=== PATIENT | female | born 1985 | race Caucasian/White ===

== ENCOUNTER 2019-09-30 10:56 | Emergency (ER) | payer OTHER, SELFPAY ==
[2019-09-30 10:56] VITALS: BP 135/85; PULSE 84; RESP 19; TEMP 36.9; O2SAT 97; BMI 37.9
--- NOTE | 2019-09-30 11:47 | HMH.EDUTC ---
[facility] [place] Impression: Bronchitis Sinusitis Qualifiers: Sinusitis location: unspecified location Chronicity: unspecified Qualified Code(s): J32.9 - Chronic sinusitis, unspecified Disposition: Home, Self-Care Condition on Discharge: Good Instructions: Sinusitis, Sinus Headache, DI for Sinusitis, Acute Bronchitis, Acute Bronchitis (Alternative Therapy), DI for Acute Bronchitis Additional Instructions: *Monitor Temp, Over the counter Motrin or Tylenol as directed/as needed Tylenol every 4 hours and Motrin every 6 hours (as long as your family doctor has told you that you can take it) for fever or pain. and straight to ER if unable to lower temp less than 101.0 after medication given *Warm salt water gargles may help to soothe the throat *Throat Lozenges *Warm fluids *Sleep elevated *Humidifier/Vaporizer ? Start antibiotic today. Be sure to complete entire prescription even if feeling better ? Monitor temp. Tylenol every 4 hours as needed and / or ibuprofen every 6 hours as needed ( As long as your primary care physician has told you that it ok to take both. For fever/aches/pains ER if no less than 101 despite Tylenol or Motrin ? Humidifier/vaporizer or hot steamy shower ? Inhaler every 4-6 hours as needed like we discussed. If unsure how to use it, ask pharmacist to demonstrate how. Should help open airways and improve cough, wheezing, and shortness of breath ? Mucinex during the day for your cough and cough suppressant only at night. Be sure to drink lots of water. Insurance may not cover a prescriptions for mucinex. Might be cheaper to get 400mg tablets and take 2 tablet in the morning, mid-day and evening with lots of water. *Start steroid today. Helps with inflammation therefore, cough and wheezing. Follow directions on the package. Reviewed side effects. Patient reports taking them before. Follow up IMMEDIATELY for new or worsening of symptoms OR no noticeable improvement over the next 48-72 hours. 911 immediately for any life threatening symptoms such as chest pain or difficulty breathing Follow up IMMEDIATELY for new or worsening symptoms or no Noticeable improvement over the next 48-72 hours. 911 for difficulty breathing or swallowing Prescriptions: Albuterol Sulfate [Albuterol HFA Inhaler] 1 - 2 puffs IH Q4-6H PRN #1 inh PRN Reason: Shortness Of Breath Or Wheezing Transmission Status: Pending to [facility] methylPREDNISolone [Medrol 4mg tab] 4 mg PO DIRECTED #21 tab Transmission Status: Pending to [facility] Azithromycin [Z-Drake 250mg Tab*] 250 mg PO UD DOSE PK #6 tab Transmission Status: Pending to [facility] Referrals: Hesham Stubbs [Primary Care Provider] - As needed Time of Disposition: 11:53 Medical Decision Making - Luis Inquiry Pt receiving controlled substance: No Luis was queried for this patient: No Vital Signs: 09/30/19 10:56 Temperature 98.4 F Temperature Source Oral Pulse Rate [Right] 84 Respiratory Rate 19 Blood Pressure [Right Arm] 135/85 Blood Pressure Mean [Right Arm] 101 02 Sat by Pulse Oximetry 97 - Reevaluation(s) Time: 11:53 Reevaluation #1: Patient states that she is allergic to Biacin but has been able to take Azithromycin without complications or reactions [facility] [place] General Stated complaint: sinus congestion Time Seen by Provider: 09/30/19 11:47 Mode of Arrival: Ambulatory Limitations: No Limitations Description of Symptoms (Recalled from Triage Doc. by RN): C/O sinus pressure, drainage and cough for several days. HEENT Symptoms (Recalled from RN notes): Yes Resp Symptoms (Recalled from RN notes): Yes Skin Symptoms (Recalled from RN notes): No MS Symptoms (Recalled from RN notes): No Functional Status (Recalled from RN notes): na - History of Present Illness Provider Complaint: Patient states that she is having sinus congestion and drianage and feels like it is moving into her chest and causing bro
[2019-09-30 12:06] VITALS: BP 124/78; PULSE 78; RESP 18; TEMP 36.7; O2SAT 98
== END 2019-09-30 12:06 | disposition home or self-care (01) ==
PROVIDERS: Emergency Provider Nurse Practitioner; PCP Pediatrics
DX: J40 Bronchitis, not specified as acute or chronic (principal); J32.9 Chronic sinusitis, unspecified; Z88.1 Allergy status to other antibiotic agents; Z88.0 Allergy status to penicillin; Z79.899 Other long term (current) drug therapy
CPT/HCPCS: 99201

== ENCOUNTER → 2020-07-23 10:44 | Outpatient (CLI) | payer OTHER, SELFPAY ==
[2020-07-23 11:39] LABS: Strep Scrn Group A (Rapid) Negative (Negative)
== END ==
PROVIDERS: PCP Internal Medicine Adolescent Medicine; Visit Provider Internal Medicine Adolescent Medicine
DX: Z03.818 Encounter for observation for suspected exposure to other biological agents ruled out (principal); J02.9 Acute pharyngitis, unspecified
CPT/HCPCS: 87070; 87077; 87430; U0003

== ENCOUNTER → 2020-10-13 10:39 | Outpatient (CLI) | payer OTHER, SELFPAY ==
--- NOTE | 2020-10-13 10:48 | XR_ITS ---
PROCEDURE: XR FOOT LT MIN 3V CLINICAL INDICATION: LT FOOT PAIN COMPARISON: No exams were available for comparison FINDINGS: No fracture or dislocation. No lytic or blastic change. There is normal mineralization. The joint spaces are well-preserved. No significant degenerative/arthritic changes. No erosive changes evident. Other findings:There is a small calcaneal spur IMPRESSION: No acute findings. Dictated by: Nelson Arevalo MD 10/13/2020 14:34 Nelson Arevalo MD in [place] 10/13/2020 14:34
== END ==
PROVIDERS: PCP Internal Medicine Adolescent Medicine; Visit Provider Internal Medicine Adolescent Medicine
DX: M79.672 Pain in left foot (principal)
CPT/HCPCS: 73630

== ENCOUNTER 2020-10-13 11:04 | Outpatient (RCR) | payer OTHER, SELFPAY | END 2020-10-13 11:49 | disposition home or self-care (01) | LOC: PT 11:04 | PROVIDERS: Visit Provider Internal Medicine Adolescent Medicine | DX: M79.672 Pain in left foot (principal) ==

== ENCOUNTER → 2020-11-10 11:19 | Outpatient (CLI) | payer OTHER, SELFPAY ==
[2020-11-10 11:50] LABS: Hemoglobin A1C 6.1 % (4.0-6.0)
[2020-11-10 12:40] LABS: Chloride 104 mmol/L (98-107); Potassium 4.4 mmoL/L (3.5-5.1); Sodium 138 mmol/L (136-145)
[2020-11-10 12:43] LABS: Anion Gap 9.4 mEq/L (5-15); Blood Urea Nitrogen 10 mg/dl (7-17); Calcium 9.9 mg/dl (8.4-10.2); Carbon Dioxide 29 mmol/L (22.0-30.0); Estimated Glomerular Filt Rate 114 ml/min (>60); GFR (African American) 138 ML/MIN (>60); Glucose 91 mg/dl (74-100)
== END ==
PROVIDERS: Visit Provider Internal Medicine Adolescent Medicine
DX: E11.9 Type 2 diabetes mellitus without complications (principal); Z79.84 Long term (current) use of oral hypoglycemic drugs
CPT/HCPCS: 36415; 80048; 83036

== ENCOUNTER → 2021-02-16 14:30 | Outpatient (CLI) | payer OTHER, SELFPAY ==
[2021-02-17 08:58] LABS: Basophils # 0.1 K/mm3 (0-0.2); Basophils % 0.7 % (0.1-2.0); Eosinophils # 0.2 K/mm3 (0.0-0.4); Hematocrit 42.5 % (37.0-47.0); Hemoglobin 13.7 g/dL (12.2-16.2); Lymphocytes # 1.7 K/mm3 (0.7-4.5); Lymphocytes % 16.7 % (10-50); Mean Corpuscular HGB Conc 32.2 g/dL (31.8-35.4); Mean Corpuscular Hemoglobin 29.9 pg (27.0-31.2); Mean Platelet Volume 9.7 fl (7.4-10.4); Monocytes # 0.4 K/mm3 (0.1-1.0); Monocytes % 3.5 % (1.7-9.3); Neutrophils % 77.1 % (37.0-80.0); Platelet Count 278 K/mm3 (142-424); Red Blood Count 4.57 M/mm3 (4.20-5.40); Red Cell Distribution Width 14.4 % (11.5-17.5); White Blood Count 10.4 K/mm3 (4.8-10.8)
[2021-02-17 09:27] LABS: Alanine Aminotransferase 49 U/L (12-78); Albumin Level 4.4 g/dl (3.5-5.0); Albumin/Globulin Ratio 1.8 (1.1-1.8); Alkaline Phosphatase 113 U/L (38-126); Anion Gap 15.9 mEq/L (5-15); Aspartate Amino Transferase 44 U/L (14-36); Bilirubin,Total 0.4 mg/dl (0.2-1.3); Blood Urea Nitrogen 11 mg/dl (7-17); Calcium 9.9 mg/dl (8.4-10.2); Carbon Dioxide 26 mmol/L (22.0-30.0); Chloride 99 mmol/L (98-107); Estimated Glomerular Filt Rate 114 ml/min (>60); GFR (African American) 138 ML/MIN (>60); Globulin 2.5 g/dL (1.3-3.2); Glucose 155 mg/dl (74-100); Potassium 4.9 mmoL/L (3.5-5.1); Sodium 136 mmol/L (136-145); Total Protein,Serum 6.9 g/dl (6.3-8.2)
[2021-02-17 11:05] LABS: Hemoglobin A1C 6.4 % (4.0-6.0)
== END ==
PROVIDERS: Visit Provider Internal Medicine Adolescent Medicine
DX: E11.9 Type 2 diabetes mellitus without complications (principal); Z79.84 Long term (current) use of oral hypoglycemic drugs
CPT/HCPCS: 80053; 83036; 85025

== ENCOUNTER → 2021-05-15 12:11 | Outpatient (CLI) | payer OTHER, SELFPAY ==
[2021-05-15 13:22] LABS: Blood Urea Nitrogen 7 mg/dl (7-17); Estimated Glomerular Filt Rate 141 ml/min (>60); GFR (African American) 171 ML/MIN (>60)
== END ==
PROVIDERS: Visit Provider Podiatrist
DX: Z01.812 Encounter for preprocedural laboratory examination (principal)
CPT/HCPCS: 36415; 82565; 84520

== ENCOUNTER → 2021-05-18 15:33 | Outpatient (CLI) | payer OTHER, SELFPAY ==
--- NOTE | 2021-05-18 15:34 | MR_ITS ---
PROCEDURE: MR ANKLE LT WO/W CON CLINICAL INDICATION: chronic pain COMPARISON: No exams were available for comparison TECHNIQUE: Routine multiplanar multi echo sequences are performed without gadolinium enhancement. FINDINGS: There is mild diffuse subcutaneous edema about the ankle. No acute fracture or dislocation is evident. Talar dome has an unremarkable appearance. The ankle mortise is preserved. The tibiofibular ligaments, anterior and posterior talofibular ligament and deltoid ligament appear intact. The peroneal longus and brevis tendons appear intact. Small amount fluid is present along the posterior tibialis tendon. No evidence tendon tear. The flexor digitorum longus tendon has an unremarkable appearance. Small amount fluid is also present in the flexor hallucis longus tendon sheath at the level of the ankle joint. The Achilles tendon and the anterior extensor tendons have an unremarkable appearance. Sinus tarsi is unremarkable. IMPRESSION: 1. No ligamentous or tendon injury apparent. 2. Mild diffuse subcutaneous edema about the ankle. 3. Tenosynovitis of the posterior tibialis and flexor hallucis longus tendons Dictated by: Nelson Arevalo MD 05/19/2021 11:15 Nelson Arevalo MD in [place] 05/19/2021 11:15
== END ==
PROVIDERS: PCP Internal Medicine Adolescent Medicine; Visit Provider Podiatrist
DX: M25.572 Pain in left ankle and joints of left foot (principal); M25.372 Other instability, left ankle
CPT/HCPCS: 73723; A9576

== ENCOUNTER → 2021-08-17 18:53 | Outpatient (CLI) | payer OTHER, SELFPAY ==
[2021-08-17 19:09] LABS: Hemoglobin A1C 6.9 % (4.0-6.0)
== END ==
PROVIDERS: Visit Provider Internal Medicine Adolescent Medicine
DX: E11.9 Type 2 diabetes mellitus without complications (principal); Z79.84 Long term (current) use of oral hypoglycemic drugs
CPT/HCPCS: 83036

== ENCOUNTER 2021-08-19 10:47 | Emergency (ER) | payer OTHER, SELFPAY ==
[2021-08-19 11:00] VITALS: BP 152/93; PULSE 100; RESP 18; TEMP 36.8; O2SAT 98; BMI 42.4
--- NOTE | 2021-08-19 11:57 | HMH.EDUTC ---
[facility] [place] Clinical Impression: Sinusitis Qualifiers: Sinusitis location: unspecified location Chronicity: unspecified Qualified Code(s): J32.9 - Chronic sinusitis, unspecified Disposition: Home, Self-Care Condition on Discharge: Good Instructions: Sinusitis, DI for Sinusitis Additional Instructions: *Monitor Temp, Over the counter Motrin or Tylenol as directed/as needed Tylenol every 4 hours and Motrin every 6 hours (as long as your family doctor has told you that you can take it) for fever or pain. and straight to ER if unable to lower temp less than 101.0 after medication given *Warm salt water gargles may help to soothe the throat *Throat Lozenges *Warm fluids like tea with honey may help to soothe the throat *Sleep elevated *Humidifier/Vaporizer Follow up IMMEDIATELY for new or worsening symptoms or no Noticeable improvement over the next 48-72 hours. 911 for difficulty breathing or swallowing You were tested for today for COVID19 your test result should be back in the next 24-48 hours, you may check your results on the [facility] health portal if you have trouble logging on or viewing your results you may call You was given a handout with instructions for Self Quarantine and Self isolation for while you wait on test results and what to do if they are positive If you are positive the Health Dept will be contacting you also Make sure to take your Vitamins Vit. C Vit D and Zinc if you can take them Prescriptions: predniSONE [Deltasone 10mg tablet] 10 mg PO BID 5 Days #10 tab Transmission Status: [facility]ending to [id number] Azithromycin [Z-Drake 250mg Tab] 250 mg PO DIRECTED #6 tab Transmission Status: Pending to [id number] Referrals: Grupo Luna MD [Primary Care Provider] - As needed Forms: Work/School Release Time of Disposition: 12:06 Medical Decision Making - Luis Inquiry Pt receiving controlled substance: No Luis was queried for this patient: No Vital Signs: 08/19/21 11:00 Temperature 98.3 F Temperature Source Oral Pulse Rate [Right Brachial] 100 H Respiratory Rate 18 Blood Pressure [Right Arm] 152/93 H Blood Pressure Mean [Right Arm] 112 Blood Pressure Source [Right Arm] Automatic Cuff Blood Pressure Position [Right Arm] Sitting 02 Sat by Pulse Oximetry 98 Oxygen Delivery Method Room Air Medical Decision Narrative: Patient states that she is allergic to Clarithromycin but has taken azithromycin in the past without complications [facility] [place] - General Stated complaint: sore throat, runny nose, WOOD, congestion Time Seen by Provider: 08/19/21 11:58 Mode of Arrival: Ambulatory Source of Information: Patient Limitations: No Limitations Description of Symptoms (Recalled from Triage Doc. by RN): PATIENT C/O SINUS PRESSURE, SCRATCHY THROAT/EARS, AND RUNNY NOSE X 1 WEEK HEENT Symptoms (Recalled from RN notes): Yes Resp Symptoms (Recalled from RN notes): No Skin Symptoms (Recalled from RN notes): No MS Symptoms (Recalled from RN notes): No Functional Status (Recalled from RN notes): WNL - History of Present Illness Provider Complaint: Patient states that she has been having sinus pain and pressure for over a week that has continued to get worse since Tuesday States that today she feels pressure behind her eyes and in her ears State that she has had a cough and drainage in the back of her throat so she came in to get checked - Related Data Home Medications Medication Instructions Recorded Confirmed Cetirizine HCl [Zyrtec] 10 mg PO DAILY 02/01/18 08/19/21 Fluoxetine HCl 20 mg PO DAILY 10/30/19 08/19/21 metformin 500 mg tablet 500 mg PO BID tab 11/10/20 08/19/21 Previous Rx's Medication Instructions Recorded Azithromycin [Z-Drake 250mg Tab] 250 mg PO DIRECTED #6 tab 08/19/21 predniSONE [Deltasone 10mg tablet] 10 mg PO BID 5 Days #10 tab 08/19/21 Allergies Allergy/AdvReac Type Severity Reaction Status Date / Time clarithromycin [From Biaxin] Allergy Ve
[2021-08-19 12:06] VITALS: BP 152/93; PULSE 100; RESP 18; TEMP 36.8; O2SAT 98
== END 2021-08-19 12:13 | disposition home or self-care (01) ==
PROVIDERS: Emergency Provider Nurse Practitioner; PCP Internal Medicine Adolescent Medicine
DX: J32.9 Chronic sinusitis, unspecified (principal); E11.9 Type 2 diabetes mellitus without complications; F33.1 Major depressive disorder, recurrent, moderate; Z20.822 Contact with and (suspected) exposure to COVID-19
CPT/HCPCS: 99202; C9803; G0463; U0003; U0005

== ENCOUNTER 2021-09-08 12:07 | Emergency (ER) | payer OTHER, SELFPAY ==
[2021-09-08 13:23] VITALS: BP 133/79; PULSE 109; RESP 21; TEMP 37.2; O2SAT 98; BMI 42.0
--- NOTE | 2021-09-08 13:47 | HMH.EDUTC ---
[facility] [place] Clinical Impression: Sinusitis Qualifiers: Sinusitis location: unspecified location Chronicity: unspecified Qualified Code(s): J32.9 - Chronic sinusitis, unspecified Disposition: Home, Self-Care Condition on Discharge: Good Instructions: Sinusitis, DI for Sinusitis Additional Instructions: ? Start antibiotic today. Be sure to complete entire prescription even if feeling better ? Monitor temp. Tylenol every 4 hours as needed and / or ibuprofen every 6 hours as needed ( As long as your primary care physician has told you that it ok to take both. For fever/aches/pains ER if no less than 101 despite Tylenol or Motrin ? Humidifier/vaporizer or hot steamy shower ? Inhaler every 4-6 hours as needed like we discussed. If unsure how to use it, ask pharmacist to demonstrate how. Should help open airways and improve cough, wheezing, and shortness of breath Warm teas may help with throat irritation *Tessalon Perles will not cause drowsiness but use at bedtime to help stop cough so that you may get some rest. *Start steroid today. Helps with inflammation therefore, cough and wheezing. Follow directions on the package. Reviewed side effects. Patient reports taking them before. Follow up IMMEDIATELY for new or worsening of symptoms OR no noticeable improvement over the next 48-72 hours. 911 immediately for any life threatening symptoms such as chest pain or difficulty breathing Prescriptions: Benzonatate [Benzonatate 100mg cap] 100 mg PO Q8HP PRN #30 cap PRN Reason: Cough Transmission Status: Received by [id number] Fluticasone Propionate [Flonase 50mcg nasal spray 16gm] 1 spr NS DAILY #1 ml Transmission Status: Received by [id number] levoFLOXacin [Levaquin 500mg tab] 500 mg PO DAILY 7 Days #7 tab Transmission Status: [id number] Referrals: Grupo Luna MD [Primary Care Provider] - As needed Forms: Work/School Release Time of Disposition: 14:27 Medical Decision Making - Luis Inquiry Pt receiving controlled substance: No Luis was queried for this patient: No Vital Signs: 09/08/21 13:23 Temperature 98.9 F Temperature Source Oral Pulse Rate [Left] 109 H Respiratory Rate 21 Blood Pressure [Right Arm] 133/79 Blood Pressure Mean [Right Arm] 97 02 Sat by Pulse Oximetry 98 Orders (Tests/Meds): ED MEDICATIONS Discontinued Medications Generic Name Dose Route Start Last Admin Trade Name Dm PRN Reason Stop Dose Admin Methylprednisolone Sodium Succinate 125 mg 09/08/21 13:54 09/08/21 14:09 Methylprednisolone Sod Succ 125mg Vial IM 09/08/21 13:55 125 mg ONCE ONE Administration Medical Decision Narrative: Patient state that she has taken Levaqin in the past without complications or reactions [facility] [place] - General Stated complaint: coughm runny nose, WOOD, congestion Time Seen by Provider: 09/08/21 13:47 Mode of Arrival: Ambulatory Source of Information: Patient Limitations: No Limitations HEENT Symptoms (Recalled from RN notes): Yes (nasal drainage/congestion) Resp Symptoms (Recalled from RN notes): Yes (cough) Skin Symptoms (Recalled from RN notes): No MS Symptoms (Recalled from RN notes): No Functional Status (Recalled from RN notes): wnl - History of Present Illness Provider Complaint: Patient states that she was seen about 2-3 wks ago and was treated for Sinus infection States that she took the medication and it got better but then a few days ago she noticed it was comining back and she was having pressure again in her sinuses and it was causing her to cough States that today she was having pressure behind her eyes and still having the cough so she came in to get checked again - Related Data Home Medications Medication Instructions Recorded Confirmed Cetirizine HCl [Zyrtec] 10 mg PO DAILY 02/01/18 08/19/21 Fluoxetine HCl 20 mg PO DAILY 10/30/19 08/19/21 metformin 500 mg tablet 500 mg PO BID tab 11/10/20 08/19/21 Previous Rx's
[2021-09-08 14:30] VITALS: BP 133/79; PULSE 109; RESP 20; TEMP 37.2
[2021-09-08 14:33] LABS: Adenovirus,PCR Not Detected (NotDetected); Bordetella Pertussis Not Detected (NotDetected); Chlamydophila Pneumoniae, PCR Not Detected (NotDetected); Coronavirus 19, PCR Not Detected (NotDetected); Coronavirus 229E Not Detected (NotDetected); Coronavirus NL63 Not Detected (NotDetected); Coronovirus HKU1,PCR Not Detected (NotDetected); Human Metapneumovirus Not Detected (NotDetected); Influenza A, PCR Not Detected (NotDetected); Influenza AH1, 2009 Not Detected (NotDetected); Influenza AH1, PCR Not Detected (NotDetected); Influenza AH3,PCR Not Detected (NotDetected); Influenza B, PCR Not Detected (NotDetected); Mycoplasma Pneumoniae, PCR Not Detected (NotDetected); Parainfluenza 1, PCR Not Detected (NotDetected); Parainfluenza 2, PCR Not Detected (NotDetected); Parainfluenza 3, PCR Not Detected (NotDetected); Parainfluenza 4, PCR Not Detected (NotDetected); Respiratory Syncytial Virus Not Detected (NotDetected); Rhinovirus/Enterovirus Not Detected (NotDetected)
[2021-09-08 19:22] LABS: Coronavirus OC43 Detected (NotDetected)
== END 2021-09-08 14:36 | disposition home or self-care (01) ==
PROVIDERS: Emergency Provider Nurse Practitioner; PCP Internal Medicine Adolescent Medicine
DX: J32.9 Chronic sinusitis, unspecified (principal); B97.29 Other coronavirus as the cause of diseases classified elsewhere; E11.9 Type 2 diabetes mellitus without complications; F33.1 Major depressive disorder, recurrent, moderate; Z88.0 Allergy status to penicillin; Z79.899 Other long term (current) drug therapy
CPT/HCPCS: 87581; 87632; 87798; 96372; 99202; C9803; G0463; U0003; U0005

== ENCOUNTER → 2021-10-23 11:26 | Outpatient (CLI) | payer OTHER, SELFPAY | PROVIDERS: Visit Provider Nurse Practitioner | DX: Z20.822 Contact with and (suspected) exposure to COVID-19 (principal) | CPT/HCPCS: C9803; U0003; U0005 ==

== ENCOUNTER 2022-02-12 10:18 | Emergency (ER) | payer OTHER, SELFPAY ==
[2022-02-12 11:05] VITALS: BP 133/83; PULSE 89; RESP 19; TEMP 37.1; O2SAT 98; BMI 39.5
--- NOTE | 2022-02-12 11:16 | HMH.EDUTC ---
[facility] [place] Clinical Impression: Acute bronchitis Qualifiers: Bronchitis organism: unspecified organism Qualified Code(s): J20.9 - Acute bronchitis, unspecified Sinusitis Qualifiers: Sinusitis location: unspecified location Chronicity: acute Recurrence: non-recurrent Qualified Code(s): J01.90 - Acute sinusitis, unspecified Disposition: Home, Self-Care Condition on Discharge: Good Instructions: DI for Sinusitis, DI for Acute Bronchitis Additional Instructions: Drink plenty of fluids. Take tylenol or ibuprofen for pain or fever. Take the medications as directed. Follow up with your regular doctor. GO TO THE ER FOR ANY WORSENING SYMPTOMS Don't start the oral steroids until tomorrow, since you had the shot here today. The cough medication (promethazine dm) will make you drowsy, so don't drive or operate heavy machinery after taking it. Prescriptions: Albuterol Sulfate [Albuterol Sulfate Hfa] 2 puffs IH Q6HP PRN 30 Days #1 each PRN Reason: Shortness Of Breath Transmission Status: Received by [facility] Promethazine/Dextromethorphan [Promethazine-Dm Syrup] 5 ml PO Q6HP PRN #240 ml PRN Reason: Cough Transmission Status: Received by [facility] methylPREDNISolone [Medrol] 4 mg PO DIRECTED 6 Days #21 packet Transmission Status: Received by [facility] Cefdinir [Omnicef 300mg Capsule] 300 mg PO BID #20 cap Transmission Status: Received by [facility] Referrals: Grupo Luna MD [Primary Care Provider] - Forms: Work/School Release Time of Disposition: 12:02 Medical Decision Making - Medical Records Medical records reviewed: No: I reviewed the patient's medical records. - Luis Inquiry Pt receiving controlled substance: No Vital Signs: 02/12/22 11:05 02/12/22 11:53 Temperature 98.8 F 98.8 F Temperature Source Oral Pulse Rate 89 Pulse Rate [Right Brachial] 89 Respiratory Rate 19 19 Blood Pressure 133/83 Blood Pressure [Right Arm] 133/83 Blood Pressure Mean [Right Arm] 99 Blood Pressure Source [Right Arm] Automatic Cuff Blood Pressure Position [Right Arm] Sitting 02 Sat by Pulse Oximetry 98 Oxygen Delivery Method Room Air - Lab Data Lab results reviewed: Yes: I reviewed the patient's lab results. Orders (Tests/Meds): ED MEDICATIONS Discontinued Medications Generic Name Dose Route Start Last Admin Trade Name Dm PRN Reason Stop Dose Admin Dexamethasone Sodium Phosphate 8 mg 02/12/22 11:42 02/12/22 11:50 Dexamethasone 4mg/Ml 1ml Vial IM 02/12/22 11:43 8 mg ONCE ONE Administration [facility] [place] HPI - General Stated complaint: chest congestion, cough, sore throat, sinus press. Time Seen by Provider: 02/12/22 11:16 - History of Present Illness Provider Complaint: She states that for the past 3 days she has had sinus congestion, chest congestion, poor appetite and she has felt bad. She states that she gets this every spring and its her normal bronchitis. She refuses a covid-19 test. - Related Data Home Medications Medication Instructions Recorded Confirmed Cetirizine HCl [Zyrtec] 10 mg PO DAILY 02/01/18 10/24/21 Fluoxetine HCl 20 mg PO DAILY 10/30/19 10/24/21 metformin 500 mg tablet 500 mg PO BID tab 11/10/20 10/24/21 Previous Rx's Medication Instructions Recorded methylprednisolone 4 mg tablets in See Rx Instructions PO PER PKG DIR 10/24/21 a dose pack #21 tab Albuterol Sulfate [Albuterol 2 puffs IH Q6HP PRN 30 Days #1 each 02/12/22 Sulfate Hfa] Cefdinir [Omnicef 300mg Capsule] 300 mg PO BID #20 cap 02/12/22 Promethazine/Dextromethorphan 5 ml PO Q6HP PRN #240 ml 02/12/22 [Promethazine-Dm Syrup] methylPREDNISolone [Medrol] 4 mg PO DIRECTED 6 Days #21 02/12/22 packet Allergies Allergy/AdvReac Type Severity Reaction Status Date / Time clarithromycin [From Biaxin] Allergy Verified 10/24/21 11:56 Penicillins Allergy Verified 10/24/21 11:56 [facility] History - Hepatiti
[2022-02-12 11:53] VITALS: BP 133/83; PULSE 89; RESP 19; TEMP 37.1; O2SAT 98
== END 2022-02-12 12:05 | disposition home or self-care (01) ==
PROVIDERS: Emergency Provider Nurse Practitioner Family; PCP Internal Medicine Adolescent Medicine
DX: J20.9 Acute bronchitis, unspecified (principal); J01.90 Acute sinusitis, unspecified
CPT/HCPCS: 96372; 99212; G0463

== ENCOUNTER 2022-08-30 10:04 | Emergency (ER) | payer OTHER, SELFPAY ==
[2022-08-30 12:32] VITALS: BP 112/92; PULSE 103; RESP 18; TEMP 38.3; O2SAT 95; BMI 41.1
--- NOTE | 2022-08-30 12:34 | EXP.UTC ---
Discharge Plan Disposition Patient Disposition: Home, Self-Care Condition: Good Prescriptions Prescriptions: New benzonatate [benzonatate] 100 mg capsule 100 mg PO TIDP PRN (Reason: Cough) Qty: 30 0RF methylprednisolone 4 mg Tablets,Dose Pack 4 mg PO DIRECTED Qty: 21 0RF No Action metformin 500 mg tablet 500 mg PO BID Label Comments: TAKE 1 TABLET BY MOUTH TWICE A DAY methylprednisolone [Medrol (Drake)] 4 mg tablets,dose pack See Rx Instructions PO PER PKG DIR Qty: 21 0RF Rx Instructions: PO PER PKG DIR fluoxetine 20 MG capsule 20 mg PO DAILY promethazine-DM 120 ML syrup 5 ml PO Q6HP PRN (Reason: Cough) Qty: 240 0RF methylprednisolone 4 MG tablets,dose pack 4 mg PO DIRECTED 6 Days Qty: 21 0RF albuterol sulfate 8.5 GM HFA aerosol inhaler 2 puffs IH Q6HP PRN (Reason: Shortness Of Breath) 30 Days Qty: 1 5RF cefdinir 300 MG capsule 300 mg PO BID Qty: 20 0RF cetirizine 10 MG capsule 10 mg PO DAILY Referrals Follow up/Referrals: Agustin Jimenez MD [Primary Care Provider] - See instructions Activity Restrictions/Add. Instructions Additional Instructions/Restrictions: Drink plenty of fluids. Take tylenol or ibuprofen for pain or fever. Take the medications as directed. Follow up with your regular doctor. GO TO THE ER FOR ANY WORSENING SYMPTOMS Clinical Impressions Clinical Impression: Acute bronchitis, Sinusitis Instructions Patient Instructions: Sinusitis, DI for Sinusitis Discharge ED Provider: Grupo Dahl [facility] [place] General Stated complaint: Congestion,wants tested for flu Time Seen by Provider: 08/30/22 12:34 History of Present Illness Provider Complaint: She states that for the past 1 week she has had sinus congestion and a productive cough with yellowish sputum. She denies any known exposure to any illnesses. She usually gets a sinus infection and bronchitis every year at this time. Related Data Home Medications Medication Instructions Recorded Confirmed cetirizine 10 mg capsule 10 mg PO DAILY Allergy symptoms 02/01/18 10/24/21 fluoxetine 20 mg capsule 20 mg PO DAILY Anxiety 10/30/19 10/24/21 metformin 500 mg tablet 500 mg PO BID Diabetes 11/10/20 10/24/21 Previous Rx's Medication Instructions Recorded methylprednisolone 4 mg tablets in See Rx Instructions PO PER PKG DIR 10/24/21 a dose pack (Medrol (Drake)) #21 tabs albuterol sulfate 90 mcg/actuation 2 puffs inhalation Q6HP PRN 02/12/22 aerosol inhaler Shortness Of Breath 30 days #1 ea cefdinir 300 mg capsule 300 mg PO BID #20 caps 02/12/22 methylprednisolone 4 mg tablets in 4 mg PO DIRECTED 6 days #21 02/12/22 a dose pack packets promethazine-DM 6.25 mg-15 mg/5 mL 5 ml PO Q6HP PRN Cough #240 mL 02/12/22 oral syrup benzonatate 100 mg capsule 100 mg PO TIDP PRN Cough #30 caps 08/30/22 methylprednisolone 4 mg tablets in 4 mg PO DIRECTED #21 tabs 08/30/22 a dose pack Allergies Allergy/AdvReac Type Severity Reaction Status Date / Time clarithromycin [From Biaxin] Allergy Verified 08/30/22 12:35 Penicillins Allergy Verified 08/30/22 12:35 [facility] Social History Smoking Status: Never smoker alcohol intake: never current occupational status: other Travel in the last 8 weeks: None ROS Obtained: Yes All systems reviewed & no additional complaints except as documented Constitutional Constitutional: Denies chills and Denies fever(s) Eyes Eyes: Denies eye discharge ENT Ears, Nose, Mouth, and Throat: Reports as per HPI, Denies dizziness, Denies otalgia and Reports sore throat Cardiovascular Cardiovascular: Denies chest pain Respiratory Respiratory: Denies shortness of breath, Reports chest congestion, Reports cough, Denies stridor and Denies wheezing Gastrointestinal Gastrointestingal: Denies nausea or vomiting Musculoskeletal Musculoskeletal: Reports system reviewed and
[2022-08-30 12:53] LABS: UTC Influenza A Antigen Negative (Negative); UTC Influenza B Antigen Negative (Negative)
[2022-08-30 12:57] VITALS: BP 112/92; PULSE 103; RESP 18; TEMP 37.6
== END 2022-08-30 13:07 | disposition home or self-care (01) ==
PROVIDERS: Emergency Provider Nurse Practitioner Family; PCP Internal Medicine Adolescent Medicine
DX: J20.9 Acute bronchitis, unspecified (principal); J32.9 Chronic sinusitis, unspecified
CPT/HCPCS: 87804; 96372; 99212; G0463

== ENCOUNTER 2024-04-22 08:36 | Emergency (ER) | payer OTHER, SELFPAY ==
[2024-04-22 08:50] VITALS: BP 131/94; PULSE 112; RESP 20; TEMP 36.7; O2SAT 95; BMI 41.7
--- NOTE | 2024-04-22 09:04 | XR_ITS ---
PROCEDURE INFORMATION: Exam: XR Chest Exam date and time: 04/22/2024 9:23 AM Age: 38 years old Clinical indication: Pain; Chest pressure; Additional info: Pain with cough/deep breath, asthma, cough x 2 months, chest pain x 3 days TECHNIQUE: Imaging protocol: Radiologic exam of the chest. Views: 2 views. COMPARISON: No relevant prior studies available. FINDINGS: Lungs: Unremarkable. No consolidation. Pleural spaces: Unremarkable. No pleural effusion. No pneumothorax. Heart/Mediastinum: Unremarkable. No cardiomegaly. Bones/joints: Unremarkable. IMPRESSION: No acute findings.
--- NOTE | 2024-04-22 09:14 | EXP.UTC ---
Discharge Plan Disposition Patient Disposition: Home, Self-Care Condition: Good Prescriptions Prescriptions: New benzonatate 100 mg capsule 100 mg PO TID PRN (Reason: cough) Qty: 30 0RF methylprednisolone [Medrol (Drake)] 4 mg tablets,dose pack See Rx Instructions .Route .COMPLEX 6 Days Qty: 21 0RF Rx Instructions: taper pack; guaifenesin [Mucinex] 600 mg tablet extended release 12hr 600 mg PO BID PRN (Reason: cough) Qty: 20 0RF No Action metformin 500 mg tablet 500 mg PO BID Patient Comments: TAKE 1 TABLET BY MOUTH TWICE A DAY cetirizine 10 MG capsule 10 mg PO DAILY meloxicam 15 mg tablet 15 mg PO DAILY Patient Comments: TAKE 1 TABLET BY MOUTH EVERY DAY amlodipine 5 mg tablet 5 mg PO DAILY Patient Comments: TAKE 1 TABLET BY MOUTH EVERY DAY norethindrone ac-eth estradiol [10/22 ()] 1-20 mg-mcg tablet 1 tab PO DAILY Patient Comments: TAKE 1 TABLET BY MOUTH EVERY DAY alogliptin 25 mg tablet 25 mg PO DAILY Patient Comments: TAKE 1 TABLET BY MOUTH EVERY DAY Referrals Follow up/Referrals: Sabiha Parikh APRN [Primary Care Provider] - See instructions Activity Restrictions/Add. Instructions Additional Instructions/Restrictions: Take medication as prescribed The Medrol pack you was prescribed may cause your blood sugar to elevate but should return to normal after you complete the medications Follow up with your Family Doctor if no improvement or any worsening of symptoms Straight to ER if any life threatening symptoms Over the counter Motrin may help with pain Clinical Impressions Clinical Impression: Pain aggravated by coughing and deep breathing Instructions Patient Instructions: DI for Pleurisy, Methylprednisolone Discharge ED Provider: Sanna Diego [facility] General Stated complaint: Poss pulled muscle in left side Mode of Arrival: Ambulatory Source of Information: Patient Limitations: No Limitations Time Seen by Provider: 04/22/24 09:14 Description of Symptoms (Recalled from Triage Doc. by RN): PATIENT C/O POSSIBLE PULLED MUSCLE OR PLUERISY FROM COUGHING X 3 DAYS HEENT Symptoms (Recalled from RN notes): No Resp Symptoms (Recalled from RN notes): Yes Skin Symptoms (Recalled from RN notes): No MS Symptoms (Recalled from RN notes): Yes Functional Status (Recalled from RN notes): WNL History of Present Illness Provider Complaint: Patient states that she had bronchitis about a month ago and has been having a cough since States that for the last 3 days she has been having pain with cough and deep breath Denies any other symptoms states that she is unsure if she may had pleurisy or something so she came in Related Data Home Medications Medication Instructions Recorded Confirmed cetirizine 10 mg capsule 10 mg PO DAILY Allergy symptoms 02/01/18 04/22/24 metformin 500 mg tablet 500 mg PO BID Diabetes 11/10/20 04/22/24 alogliptin 25 mg tablet 25 mg PO DAILY 04/22/24 04/22/24 amlodipine 5 mg tablet 5 mg PO DAILY 04/22/24 04/22/24 meloxicam 15 mg tablet 15 mg PO DAILY 04/22/24 04/22/24 norethindrone acetate 1 mg-ethinyl 1 tab PO DAILY 04/22/24 04/22/24 estradiol 20 mcg tablet (Junel) Previous Rx's Medication Instructions Recorded benzonatate 100 mg capsule 100 mg PO TID PRN cough #30 caps 04/22/24 guaifenesin 600 mg tablet, 600 mg PO BID PRN cough #20 tabs 04/22/24 extended release 12 hr (Mucinex) methylprednisolone 4 mg tablets in See Rx Instructions .Route 04/22/24 a dose pack (Medrol (Drake)) .COMPLEX 6 days #21 tabs Allergies Allergy/AdvReac Type Severity Reaction Status Date / Time clarithromycin [From Biaxin] Allergy Rash Verified 04/22/24 09:19 Penicillins Allergy Wheezing Verified 04/22/24 09:19 Worker's Comp Is this a Worker's Comp case?: No [facility] Disclaimer: The information contained in this section may have been updated after the patient was seen, as this information can be updated by other users. Medical History (Updated 04/22/24 @ 10:45 by Sanna Diego APRN) Diabetes mellitus, type 2 Asthma Hyperlipidemia Hypertension Surgical History (Updated 04/22/24 @ 09:28 by Maura Harper RN) History of carpal tunnel release History of cholecystectomy Social History Smoking Status: Never smoker alcohol intake: never current occupational status: other Travel in the last 8 weeks: None ROS Obtained: Yes All systems reviewed & no additional complaints except as documented and Yes Systems reviewed as appropriate & no additional complaints except as documented Constitutional Constitutional: Reports system reviewed and no additional complaints, except as documented and Reports as per HPI ENT Ears, Nose, Mouth, and Throat: Reports system reviewed and no additional complaints, except as documented and Reports as per HPI Cardiovascular Cardiovascular: Reports system reviewed and no additional complaints, except as documented and Reports as per HPI Respiratory Respiratory: Reports system reviewed and no additional complaints, except as documented, Reports as per HPI, Denies shortness of breath, Reports chest congestion, Reports cough, Reports pain on inspiration and Reports pain with cough Physical Exam General General appearance: alert and in no apparent distress ENT ENT exam: Present mucous membranes moist Respiratory Respiratory exam: Present normal lung sounds bilaterally; Absent respiratory distress or wheezes Cardiovascular Cardiovascular exam: Present regular rate, normal rhythm and normal heart sounds Abdominal Exam Abdominal exam: Present soft and normal bowel sounds; Absent distention or tenderness Neurological Exam Neurological exam: Present alert, oriented X3 and normal gait Medical Decision Making Luis Inquiry Pt receiving controlled substance: No Luis was queried for this patient: No Vital Signs: 04/22/24 08:50 Temperature 98.0 F Temperature Source Oral Pulse Rate [Left Brachial] 112 H Respiratory Rate 20 Blood Pressure [Left Arm] 131/94 H Blood Pressure Mean [Left Arm] 106 Blood Pressure Source [Left Arm] Automatic Cuff Blood Pressure Position [Left Arm] Sitting 02 Sat by Pulse Oximetry 95 Oxygen Delivery Method Room Air Lab Data Lab results reviewed: Yes I reviewed the patient's lab results. Orders (Tests/Meds): ORDERS Category Date Time Status Chest XR 2 view (NOT portable) [XR chest 2V] Stat Exams 04/22/24 09:04 Ordered Radiology Data #1: Image(s): Chest Image Reviewed: Yes I have reviewed radiologist's interpretation FINDINGS: Lungs: Unremarkable. No consolidation. Pleural spaces: Unremarkable. No pleural effusion. No pneumothorax. Heart/Mediastinum: Unremarkable. No cardiomegaly. Bones/joints: Unremarkable. IMPRESSION: No acute findings. Medical Decision Narrative: Patient states that she is a diabetic but her blood sugars has been good and she has taken Medrol in the past without complications or reactions
[2024-04-22 09:28] LABS: UTC Pregnancy Test, Urine Negative (Negative)
[2024-04-22 10:46] VITALS: BP 131/94; PULSE 112; RESP 20; TEMP 36.7; O2SAT 95
== END 2024-04-22 10:50 | disposition home or self-care (01) ==
PROVIDERS: Emergency Provider Nurse Practitioner; PCP Nurse Practitioner Family
DX: R07.1 Chest pain on breathing (principal); R05.9 Cough, unspecified
CPT/HCPCS: 71046; 81025; 99212; 99214; G0463

== ENCOUNTER 2024-08-20 08:19 | Emergency (ER) | payer OTHER, SELFPAY ==
[2024-08-20 08:37] VITALS: BP 144/90; PULSE 88; RESP 18; TEMP 36.9; O2SAT 97; BMI 41.5
--- NOTE | 2024-08-20 08:57 | ED_ITS ---
Discharge Plan Disposition Patient Disposition: Home, Self-Care Condition: Good Prescriptions Prescriptions: New doxycycline hyclate 100 mg capsule 100 mg PO BID Qty: 20 0RF albuterol sulfate 90 mcg/actuation HFA aerosol inhaler 2 puff inhalation Q4-6H PRN (Reason: shortness of breath or wheezing) Qty: 8.5 0RF benzonatate 100 mg capsule 100 mg PO TID PRN (Reason: cough) Qty: 30 0RF methylprednisolone [Medrol (Drake)] 4 mg tablets,dose pack See Rx Instructions .Route .COMPLEX 6 Days Qty: 21 0RF Rx Instructions: taper pack; guaifenesin [Mucinex] 600 mg tablet extended release 12hr 1,200 mg PO BID PRN (Reason: cough) Qty: 20 0RF No Action metformin 500 mg tablet 500 mg PO BID Patient Comments: TAKE 1 TABLET BY MOUTH TWICE A DAY cetirizine 10 MG capsule 10 mg PO DAILY amlodipine 5 mg tablet 5 mg PO DAILY Patient Comments: TAKE 1 TABLET BY MOUTH EVERY DAY alogliptin 25 mg tablet 25 mg PO DAILY Patient Comments: TAKE 1 TABLET BY MOUTH EVERY DAY Referrals Follow up/Referrals: Sabiha Parikh APRN [Primary Care Provider] - See instructions Activity Restrictions/Add. Instructions Additional Instructions/Restrictions: * Start antibiotic today. Be sure to complete entire prescription even if feeling better * Monitor temp. Tylenol every 4 hours as needed and / or ibuprofen every 6 hours as needed ( As long as your primary care physician has told you that it ok to take both. For fever/aches/pains ER if no less than 101 despite Tylenol or Motrin * Humidifier/vaporizer or hot steamy shower * Inhaler every 4-6 hours as needed like we discussed. If unsure how to use it, ask pharmacist to demonstrate how. Should help open airways and improve cough, wheezing, and shortness of breath * Mucinex during the day for your cough and cough suppressant only at night. Be sure to drink lots of water. Insurance may not cover a prescriptions for mucinex. Might be cheaper to get 400mg tablets and take 2 tablet in the morning, mid-day and evening with lots of water. *Tessalon Perles will not cause drowsiness but use at bedtime to help stop cough so that you may get some rest. *Start steroid today. Helps with inflammation therefore, cough and wheezing. Follow directions on the package. Reviewed side effects. Patient reports taking them before. Follow up IMMEDIATELY for new or worsening of symptoms OR no noticeable improvement over the next 48-72 hours. 911 immediately for any life threatening symptoms such as chest pain or difficulty breathing Clinical Impressions Clinical Impression: Sinusitis Instructions Patient Instructions: DI for Sinusitis, Sinusitis Print Language Print Language: Japanese Discharge ED Provider: [place] Diego [facility] [place] Stated complaint: cough, chest congestion, sinus pressure Mode of Arrival: Ambulatory Source of Information: Patient Time Seen by Provider: 08/20/24 08:57 Description of Symptoms (Recalled from Triage Doc. by RN): SINUS PRESSURE, POST NASAL DRIP, COUGH WITH WHEEZING X1 WEEK HEENT Symptoms (Recalled from RN notes): Yes Resp Symptoms (Recalled from RN notes): Yes Skin Symptoms (Recalled from RN notes): No MS Symptoms (Recalled from RN notes): No Functional Status (Recalled from RN notes): WNL History of Present Illness Provider Complaint: Patient states that she has been having sinus pain and pressure, drainage in the back of throat, cough and wheezing on and off States that she has a hx of asthma but almost out of her inhaler (albuterol) and needs one of them too Related Data Home Medications ?Medication ?Instructions ?Recorded ?Confirmed cetirizine 10 mg capsule 10 mg PO DAILY Allergy symptoms 02/01/18 08/20/24 metformin 500 mg tablet 500 mg PO BID Diabetes 11/10/20 08/20/24 alogliptin 25 mg tablet 25 mg PO DAILY 04/22/24 08/20/24 amlodipine 5 mg tablet 5 mg PO DAILY 04/22/24 08/20/24 Previous Rx's ?Medication ?Instructions ?Recorded albuterol sulfate 90 mcg/actuation 2 puff inhalation Q4-6H PRN 08/20/24 aerosol inhaler shortness of breath or wheezing #8.5 grams benzonatate 100 mg capsule 100 mg PO TID PRN cough #30 caps 08/20/24 doxycycline hyclate 100 mg capsule 100 mg PO BID #20 caps 08/20/24 guaifenesin 600 mg tablet, 1,200 mg (2 x 600 mg) PO BID PRN 08/20/24 extended release 12 hr (Mucinex) cough #20 tabs methylprednisolone 4 mg tablets in See Rx Instructions .Route 08/20/24 a dose pack (Medrol (Drake)) .COMPLEX 6 days #21 tabs Allergies Allergy/AdvReac Type Severity Reaction Status Date / Time clarithromycin (From Biaxin) Allergy Rash Verified 04/22/24 09:19 Penicillins Allergy Wheezing Verified 04/22/24 09:19 Worker's Comp Is this a Worker's Comp case?: No [facility] Disclaimer: The information contained in this section may have been updated after the patient was seen, as this information can be updated by other users. Medical History (Updated 08/20/24 @ 09:04 by Sanna Diego APRN) Diabetes mellitus, type 2 Asthma Hyperlipidemia Hypertension Surgical History (Updated 04/22/24 @ 09:28 by Maura Harper RN) History of carpal tunnel release History of cholecystectomy Social History Smoking Status: Never smoker alcohol intake: never current occupational status: other Travel in the last 8 weeks: None ROS Obtained: Yes All systems reviewed & no additional complaints except as documented and Yes Systems reviewed as appropriate & no additional complaints except as documented Constitutional Constitutional: Reports system reviewed and no additional complaints, except as documented and Reports as per HPI Eyes Eyes: Reports system reviewed and no additional complaints, except as documented and Reports as per HPI ENT Ears, Nose, Mouth, and Throat: Reports system reviewed and no additional complaints, except as documented, Reports as per HPI, Reports sinus pain and Reports sinus pressure Cardiovascular Cardiovascular: Reports system reviewed and no additional complaints, except as documented and Reports as per HPI Respiratory Respiratory: Reports system reviewed and no additional complaints, except as documented, Reports as per HPI, Denies shortness of breath, Denies chest congestion, Reports cough and Reports wheezing Gastrointestinal Gastrointestingal: Reports system reviewed and no additional complaints, except as documented and as per HPI Allergic/Immunologic Allergic/Immunologic: Reports wheezing Physical Exam General General appearance: alert and in no apparent distress ENT ENT exam: Present mucous membranes moist Expanded ENT Exam Nose exam: Present sinus tenderness Throat exam: Present other (Pharyngeal erythema noted with PND) Respiratory Respiratory exam: Present normal lung sounds bilaterally; Absent respiratory distress or wheezes Cardiovascular Cardiovascular exam: Present regular rate, normal rhythm and normal heart sounds Abdominal Exam Abdominal exam: Present soft and normal bowel sounds; Absent distention or tenderness Neurological Exam Neurological exam: Present alert, oriented X3 and normal gait Medical Decision Making Medical Records Screening: Per USPSTF and CDC recommendations, given the prevalence of disease in our region, it is our hospital?s policy to screen for HIV and viral Hepatitis for all patients aged 18 and over and those with ongoing risk factors. Luis Inquiry Pt receiving controlled substance: No Luis was queried for this patient: No Vital Signs: 08/20/24 08:37 Temperature 98.5 F Temperature Source Oral Pulse Rate [Left Radial] 88 Respiratory Rate 18 Blood Pressure [Left Arm] 144/90 H Blood Pressure Mean [Left Arm] 108 02 Sat by Pulse Oximetry 97
[2024-08-20 09:07] VITALS: BP 144/90; PULSE 88; RESP 18; TEMP 36.9
== END 2024-08-20 09:10 | disposition home or self-care (01) ==
PROVIDERS: Emergency Provider Nurse Practitioner; PCP Nurse Practitioner Family
DX: J01.90 Acute sinusitis, unspecified (principal)
CPT/HCPCS: 99213; G0381